=== PATIENT | female | born 1955 | race Asian ===

== ENCOUNTER 2020-12-18 19:16 | Emergency (ER) | payer MEDICAID ==
[~2020-12-18] VITALS: Ht 160 cm; Wt 54.4 kg
[2020-12-18 19:29] VITALS: Ht 160 cm; Wt 54.4 kg
[2020-12-18 20:15] LABS: BASOPHIL % 1.1 % (0.2-1.3); PLATELET COUNT 136 x10^3mcL (179-408)
[2020-12-18 20:19] LABS: CALCIUM 9.2 mg/dL (8.5-10.1); CARBON DIOXIDE 34.1 mmol/L (21-32); CHLORIDE SERUM 107 mmol/L (98-107); CREATININE SERUM 0.6 mg/dL (0.6-1.0); GFR1 > 60 mL/min; GLUCOSE SERUM 154 mg/dL (74-106); POTASSIUM SERUM 3.1 mmol/L (3.5-5.1); SODIUM SERUM 149 mmol/L (136-145)
[2020-12-18 20:26] LABS: ALBUMIN 3.8 g/dL (3.4-5.0); ALKALINE PHOSPHATASE 114 U/L (46-116); ALT/SGPT 75 U/L (14-59); AST/SGOT 109 U/L (15-37); BILIRUBIN TOTAL 0.9 mg/dL (0.20-1.00)
[2020-12-18 20:28] LABS: TOTAL PROTEIN, SERUM 8.3 g/dL (6.4-8.2)
[2020-12-18 21:20] LABS: AMPHETAMINE QUAL UR NONE DETECTED (See below)
[2020-12-19] MEDS ORDERED: ATIVAN1 MG PO (09:10)
[2020-12-19] MEDS ORDERED: MULTIPLE VITAMI1 T13 PO (09:10)
[2020-12-19] MEDS ORDERED: PROZAC20 MG PO (09:30)
[2020-12-19 10:25] VITALS: BP 116/61
== END 2020-12-19 10:25 | disposition home or self-care (01) ==
LOC: ED 19:16
PROVIDERS: Emergency Medicine
DX: T51.91XA Toxic effect of unspecified alcohol, accidental (unintentional), initial encounter (principal); F17.210 Nicotine dependence, cigarettes, uncomplicated; Z20.828 Contact with and (suspected) exposure to other viral communicable diseases; Y92.89 Other specified places as the place of occurrence of the external cause
CPT/HCPCS: G0480; J2060; J3480; J7030